=== PATIENT | female | born 1975 | race Hispanic/Latino ===

== ENCOUNTER 2020-10-18 19:32 | Emergency (ER) | payer SELFPAY ==
[~2020-10-18] VITALS: Ht 170.2 cm; Wt 120.2 kg
[~2020-10-18 19:32] MED LIST: ASCORBIC ACID500 MG PO; CANAGLIFLOZIN PO; CIPROFLOXACIN500 MG PO; COLACE100 M1 PO; Calcium Carbonate PO; DOXYCYCLINE HY100 MG PO; FAMOTIDINE20 MG PO; FUROSEMIDE40 MG PO; GABAPENTIN400 MG PO; GLUCOPHAGE500 MG PO; HUMALOG100 UNIT/3 SC; HUMULIN 70100 UNIT/1 SQ; Insulin Detemir SQ; LANTUS 3ML100 UNITS/ SC; LANTUS100 UNIT/1 SQ; LIPITOR10 MG PO; Lactobacillus Acidophilus PO; MAGNESIUM OXID400 MG PO; MIRALAX17 GM PO; Multivitamins/Minerals PO; PRINIVIL5 MG PO; SILVASORB480 ML TOP; TERBINAFINE HC250 MG PO; TOPAMAX25 MG PO; TYLENOL # 31 EA PO; ZINC SULFATE220 M1 PO
[2020-10-18] MEDS ORDERED: CEFEPIME 2 GM in SODIUM CHLORIDE 0.9% 100 ML IV ONE (19:45)
[2020-10-18] MEDS ORDERED: SODIUM CHLORIDE 0.9% 1000ML 1,000 ML IV ONE (19:45)
[2020-10-18] MEDS ORDERED: ACETAMINOPHEN 325 MG TAB PO ONE (19:45)
[2020-10-18 20:10] LABS: BASOPHILS # (AUTO) 0.1 (0.0-0.1); BASOPHILS % 0.3 % (0.0-1.0); EOSINOPHILS # (AUTO) 0.1 (0.0-0.4); EOSINOPHILS % 0.4 % (0.0-6.0); HEMATOCRIT 34.3 % (34.2-44.1); HEMOGLOBIN 10.9 g/dL (12.0-16.0); LYMPHOCYTES # (AUTO) 1.8 (1.0-3.2); LYMPHOCYTES % 10.5 % (18.0-39.1); MEAN CORPUSCULAR HEMOGLOBIN 26.9 pg (28-32); MEAN CORPUSCULAR HGB CONC 31.8 g/dL (31-35); MEAN CORPUSCULAR VOLUME 84.7 fL (81-99); MONOCYTES % 5.7 % (4.4-11.3); NEUTROPHILS # (AUTO) 14.3 (2.1-6.9); NEUTROPHILS % 82.4 % (38.7-80.0); PLATELET COUNT 254 x10e3/uL (140-360); RED BLOOD COUNT 4.05 x10e6/uL (3.6-5.1); RED CELL DISTRIBUTION WIDTH 13.2 % (11.7-14.4)
[2020-10-18 20:28] LABS: ALBUMIN 3.1 g/dL (3.5-5.0); ALBUMIN/GLOBULIN RATIO 0.8 (0.8-2.0); ANION GAP 12.9 mmol/L (8-16); CALCIUM 8.7 mg/dL (8.4-10.2); CREATININE, SERUM 1.13 mg/dL (0.57-1.11); POTASSIUM 3.9 mmol/L (3.5-5.1)
[2020-10-18 21:42] LABS: CLARITY,URINE HAZY (CLEAR); COLOR,URINE YELLOW (YELLOW)
[2020-10-18 21:43] LABS: KETONES,URINE NEGATIVE (NEGATIVE); LEUKOCYTE ESTERASE ,URINE SMALL (NEGATIVE); NITRITE,URINE NEGATIVE (NEGATIVE); PROTEIN,URINE DIPSTICK 1+ (NEGATIVE); URINE UROBILINOGEN 0.2 mg/dL (0.2 - 1)
[2020-10-18 21:44] LABS: AMORPHOUS SEDIMENT,URINE FEW (FEW); BACTERIA,URINE MANY /HPF; EPITHELIAL CELLS,URINE FEW /LPF; MUCUS,URINE MODERATE (RARE); WBC,URINE (MAN) >50 /HPF (0-5)
== END 2020-10-18 23:27 | disposition home or self-care (01) ==
LOC: ER 19:47
DX: R50.9 Fever, unspecified (principal); N39.0 Urinary tract infection, site not specified; Z20.822 Contact with and (suspected) exposure to COVID-19; E78.00 Pure hypercholesterolemia, unspecified; Z93.6 Other artificial openings of urinary tract status; Z87.442 Personal history of urinary calculi
CPT/HCPCS: 36415; 71045; 80053; 81001; 83605; 85025; 87086; 87186; 93005; 99284; J0692; J7030; J7050; U0002